=== PATIENT | female | born 1960 | race Caucasian/White ===

== ENCOUNTER 2018-01-31 07:48 | Emergency (ER) | payer OTHER ==
[2018-01-31 08:04] VITALS: TEMP 98.2
[2018-01-31] MEDS ORDERED: ONDANSETRON 4 MG/2 ML VIAL IVP STA (08:20)
[2018-01-31] MEDS ORDERED: SODIUM CHLORIDE 0.9% 1,000 ML IV STA (08:20)
[2018-01-31] MEDS ORDERED: MECLIZINE 12.5 MG TAB PO STA (08:21)
--- NOTE | 2018-01-31 08:58 | ED ---
Dizziness HPI - General Chief Complaint: Dizziness Stated Complaint: Dizziness Time Seen by Provider: 01/31/18 08:05 Source: patient, RN notes reviewed, old records reviewed Mode of arrival: ambulatory Limitations: no limitations - History of Present Illness Initial Comments: 57-year-old female presents emergency room today chief complaint of onset of dizziness. Worse for the past 2 weeks. She reports that she return to the right feels that the room is spinning. Patient states that she has been trying to do pressure points to manage this. Patient states that she has had a very stressful year. Patient states she's been taking care of her family and has not been able to really take care of herself. She went to her PCP. Weeks ago and was told that she was apparently fired from seeing her original PCP. Patient states that she has a history of thyroid disorder. This time she states that she did have some headaches, does have a history of multiple neck traumas in the past. She reports no recent trauma or new injuries to her head or neck. Patient states that she's had no fevers or chills. Denies any other symptoms. - Related Data Previous Rx's Medication Instructions Recorded Meclizine [Antivert] 12.5 mg PO Q8HR #20 tablet 01/31/18 Ondansetron Odt [Zofran Odt] 4 mg PO Q12HR PRN #20 tab 01/31/18 Allergies Allergy/AdvReac Type Severity Reaction Status Date / Time ibuprofen [From Motrin] Allergy Unknown Verified 01/31/18 08:04 Sulfa (Sulfonamide Allergy Unknown Verified 01/31/18 08:04 Antibiotics) Review of Systems ROS Statement: Those systems with pertinent positive or pertinent negative responses have been documented in the HPI. ROS Other: All systems not noted in ROS Statement are negative. Past Medical History Past Medical History: Thyroid Disorder History of Any Multi-Drug Resistant Organisms: None Reported Past Surgical History: Section Past Psychological History: No Psychological Hx Reported Smoking Status: Never smoker Past Alcohol Use History: Occasional Past Drug Use History: None Reported General Exam - General Exam Comments Initial Comments: 37-year-old female. Alert and oriented. No acute distress. Limitations: no limitations General appearance: alert, in no apparent distress Head exam: Present: atraumatic, normocephalic, normal inspection Eye exam: Present: normal appearance, PERRL, EOMI, nystagmus (Evidence of horizontal nystagmus on right sided gaze. Patient reports that she is very dizzy when she looks towards the right.). Absent: scleral icterus, conjunctival injection, periorbital swelling ENT exam: Present: normal exam, mucous membranes moist Neck exam: Present: normal inspection. Absent: tenderness, meningismus, lymphadenopathy Respiratory exam: Present: normal lung sounds bilaterally. Absent: respiratory distress, wheezes, rales, rhonchi, stridor Cardiovascular Exam: Present: regular rate, normal rhythm, normal heart sounds. Absent: systolic murmur, diastolic murmur, rubs, gallop, clicks GI/Abdominal exam: Present: soft, normal bowel sounds. Absent: distended, tenderness, guarding, rebound, rigid Back exam: Present: normal inspection Neurological exam: Present: alert Psychiatric exam: Present: normal affect, normal mood Skin exam: Present: warm, dry, intact, normal color. Absent: rash Course Vital Signs 01/31/18 08:01 Temperature 98.2 F Pulse Rate 80 Respiratory 20 Rate Blood Pressure 131/84 O2 Sat by Pulse 99 Oximetry Medical Decision Making - Medical Decision Making Patient's x-ray female presents by psych chief complaint of dizziness. Patient reports that she turns her head of the right she has room spinning sensation. She also has been having more stressful time with the past year. Patient's given IV fluids and obtained. Laboratory was reviewed and unremarkable. Chest x-ray was normal. Cervical x-rays she did complain of some minor neck pain was doing some degenerative changes C5-C6. Patient provisional. Patient did show evidence of a low TSH. Patient does state that she's been taking natural thyroid medication. She does have an appointment with the PCP next week. Discussed that she needs to follow up without to have her thyroid levels rechecked in a gesture medication. Patient agrees. Patient will be discharged at this time with meclizine, Apley's maneuver and Zofran. Discussed PCP follow- up P Patient history plan will comply. Return parameters were discussed. - Lab Data Result diagrams: 01/31/18 09:15 01/31/18 09:15 Lab Results 01/31/18 01/31/18 01/31/18 Range/Units 09:15 09:15 09:15 WBC 7.2 (3.8-10.6) k/uL RBC 5.00 (3.80-5.40) m/uL Hgb 14.3 (11.4-16.0) gm/dL Hct 43.4 (34.0-46.0) % MCV 86.7 (80.0-100.0) fL MCH 28.5 (25.0-35.0) pg MCHC 32.8 (31.0-37.0) g/dL RDW 12.3 (11.5-15.5) % Plt Count 271 (150-450) k/uL Neutrophils % 70 % Lymphocytes % 21 % Monocytes % 4 % Eosinophils % 4 % Basophils % 0 % Neutrophils # 5.0 (1.3-7.7) k/uL Lymphocytes # 1.5 (1.0-4.8) k/uL Monocytes # 0.3 (0-1.0) k/uL Eosinophils # 0.3 (0-0.7) k/uL Basophils # 0.0 (0-0.2) k/uL Sodium 141 (137-145) mmol/L Potassium 4.1 (3.5-5.1) mmol/L Chloride 106 (98-107) mmol/L Carbon Dioxide 27 (22-30) mmol/L Anion Gap 8 mmol/L BUN 13 (7-17) mg/dL Creatinine 0.59 (0.52-1.04) mg/dL Est GFR (CKD-EPI)AfAm >90 (>60 ml/min/1.73 sqM) Est GFR (CKD-EPI)NonAf >90 (>60 ml/min/1.73 sqM) Glucose 92 (74-99) mg/dL Calcium 9.6 (8.4-10.2) mg/dL Total Bilirubin 0.6 (0.2-1.3) mg/dL AST 21 (14-36) U/L ALT 24 (9-52) U/L Alkaline Phosphatase 51 (38-126) U/L Troponin I <0.012 (0.000-0.034) ng/mL Total Protein 7.3 (6.3-8.2) g/dL Albumin 4.6 (3.5-5.0) g/dL TSH 0.228 L (0.465-4.680) mIU/L Urine Color Urine Appearance (Clear) Urine pH (5.0-8.0) Ur Specific [place] (1.001-1.035) Urine Protein (Negative) Urine Glucose (UA) (Negative) Urine Ketones (Negative) Urine Blood (Negative) Urine Nitrite (Negative) Urine Bilirubin (Negative) Urine Urobilinogen (<2.0) mg/dL Ur Leukocyte Esterase (Negative) Urine WBC (0-5) /hpf Ur Squamous Epith Cells (0-4) /hpf Amorphous Sediment (None) /hpf Urine Mucus (None) /hpf 01/31/18 Range/Units 09:15 WBC (3.8-10.6) k/uL RBC (3.80-5.40) m/uL Hgb (11.4-16.0) gm/dL Hct (34.0-46.0) % MCV (80.0-100.0) fL MCH (25.0-35.0) pg MCHC (31.0-37.0) g/dL RDW (11.5-15.5) % Plt Count (150-450) k/uL Neutrophils % % Lymphocytes % % Monocytes % % Eosinophils % % Basophils % % Neutrophils # (1.3-7.7) k/uL Lymphocytes # (1.0-4.8) k/uL Monocytes # (0-1.0) k/uL Eosinophils # (0-0.7) k/uL Basophils # (0-0.2) k/uL Sodium (137-145) mmol/L Potassium (3.5-5.1) mmol/L Chloride (98-107) mmol/L Carbon Dioxide (22-30) mmol/L Anion Gap mmol/L BUN (7-17) mg/dL Creatinine (0.52-1.04) mg/dL Est GFR (CKD-EPI)AfAm (>60 ml/min/1.73 sqM) Est GFR (CKD-EPI)NonAf (>60 ml/min/1.73 sqM) Glucose (74-99) mg/dL Calcium (8.4-10.2) mg/dL Total Bilirubin (0.2-1.3) mg/dL AST (14-36) U/L ALT (9-52) U/L Alkaline Phosphatase (38-126) U/L Troponin I (0.000-0.034) ng/mL Total Protein (6.3-8.2) g/dL Albumin (3.5-5.0) g/dL TSH (0.465-4.680) mIU/L Urine Color Yellow Urine Appearance Cloudy H (Clear) Urine pH 7.5 (5.0-8.0) Ur Specific [place] 1.015 (1.001-1.035) Urine Protein Negative (Negative) Urine Glucose (UA) Negative (Negative) Urine Ketones Negative (Negative) Urine Blood Negative (Negative) Urine Nitrite Negative (Negative) Urine Bilirubin Negative (Negative) Urine Urobilinogen <2.0 (<2.0) mg/dL Ur Leukocyte Esterase Moderate H (Negative) Urine WBC 8 H (0-5) /hpf Ur Squamous Epith Cells <1 (0-4) /hpf Amorphous Sediment Occasional H (None) /hpf Urine Mucus Few H (None) /hpf 01/31/18 10:24 EKG shows normal sinus abnormal EKG. Ventricular rate 67 bpm period. Normal is 1:30 milliseconds. QRS ration 74 ms. QT QTc is 422/445 ms. No evidence of ST elevation or T-wave inversion. No evidence of atrial or ventricular arrhythmias. - Radiology Data Radiology results: report reviewed Tests cervical spine x-ray shows no acute osseous changes. Myalgias and changes. It mild disease at C5-C6. Normal chest x-ray. Heart is not enlarged. Disposition Clinical Impression: Vertigo, Hyperthyroidism Disposition: HOME SELF-CARE Condition: Good Instructions: Vertigo (ED) Additional Instructions: Patient has follow-up with primary care provider. Return to the emergency department if any alarming signs or symptoms occur. Prescriptions: Meclizine [Antivert] 12.5 mg PO Q8HR #20 tablet Ondansetron Odt [Zofran Odt] 4 mg PO Q12HR PRN #20 tab PRN Reason: Nausea Is patient prescribed a controlled substance at d/c from ED?: No Referrals: None,Stated [Primary Care Provider] - 1-2 days Rema Longoria MD [STAFF PHYSICIAN] - 1-2 days Time of Disposition: 10:37
[2018-01-31] MEDS ORDERED: ASPIRIN 325 MG TAB PO STA (09:26)
[2018-01-31] MEDS ORDERED: ACETAMINOPHEN TAB 500 MG TAB PO STA (09:28)
[2018-01-31 09:30] LABS: Basophils % (A) 0 %; Eosinophils # (A) 0.3 k/uL (0-0.7); Eosinophils % (A) 4 %; HCT 43.4 % (34.0-46.0); HGB 14.3 gm/dL (11.4-16.0); Lymphocytes # (A) 1.5 k/uL (1.0-4.8); Lymphocytes % (A) 21 %; MCH 28.5 pg (25.0-35.0); MCHC 32.8 g/dL (31.0-37.0); MCV 86.7 fL (80.0-100.0); Mean Platelet Volume 6.7; Monocytes # (A) 0.3 k/uL (0-1.0); Monocytes % (A) 4 %; Neutrophils % (A) 70 %; Platelet Count 271 k/uL (150-450); RDW 12.3 % (11.5-15.5); WBC 7.2 k/uL (3.8-10.6)
[2018-01-31 09:38] LABS: Amorphous Sediment,Urine Occasional /hpf; Appearance,Urine Cloudy (Clear); Bilirubin,Urine Negative (Negative); Blood,Urine Negative (Negative); Color,Urine Yellow; Glucose,Urine (UA) Negative (Negative); Ketones,Urine Negative (Negative); Leukocyte Esterase,Urine Moderate (Negative); Mucus,Urine Few /hpf; Nitrite,Urine Negative (Negative); PH, Urine 7.5 (5.0-8.0); Protein,Urine Negative (Negative); Specific Gravity,Urine 1.015 (1.001-1.035); Squamous Epithelial Cell,Urine <1 /hpf (0-4); Urobilinogen,Urine <2.0 mg/dL (<2.0); WBC,Urine 8 /hpf (0-5)
[2018-01-31 09:48] LABS: ALT 24 U/L (9-52); AST 21 U/L (14-36); Albumin 4.6 g/dL (3.5-5.0); Alkaline Phosphatase 51 U/L (38-126); Anion Gap 8 mmol/L; Blood Urea Nitrogen 13 mg/dL (7-17); Calcium 9.6 mg/dL (8.4-10.2); Carbon Dioxide 27 mmol/L (22-30); Chloride 106 mmol/L (98-107); Glucose 92 mg/dL (74-99); Potassium 4.1 mmol/L (3.5-5.1); Sodium 141 mmol/L (137-145); Total Bilirubin 0.6 mg/dL (0.2-1.3); Total Protein 7.3 g/dL (6.3-8.2)
--- NOTE | 2018-01-31 10:00 | XR ---
EXAMINATION TYPE: XR chest 2V DATE OF EXAM: 01/31/2018 HISTORY: Pain. REFERENCE: NONE. FINDINGS: The lungs are clear. Pleural space are clear. The heart is not enlarged. IMPRESSION: NORMAL CHEST.
--- NOTE | 2018-01-31 10:02 | XR ---
EXAMINATION TYPE: XR cervical spine limited , 3 VIEWS DATE OF EXAM ORDERED: 01/31/2018 HISTORY: Pain. COMPARISON: None. FINDINGS: Vertebral body height and alignment are maintained. Atlantoaxial relationships are normal. Prevertebral soft tissues are normal. There is mild uncovertebral joint disease at C5-6. There is al so mild disc space loss at this level. IMPRESSION: 1. NO ACUTE OSSEOUS LESION. 2. MILD DEGENERATIVE CHANGE.
[2018-01-31 10:46] LABS: T4, Free (Free Thyroxine) 0.86 ng/dL (0.78-2.19)
[2018-01-31 11:11] VITALS: BP 116/72; PULSE 72; RESP 16
== END 2018-01-31 11:10 | disposition home or self-care (01) ==
LOC: EC 07:48
DX: R42 Dizziness and giddiness (principal); R51 Headache; E05.90 Thyrotoxicosis, unspecified without thyrotoxic crisis or storm; M47.812 Spondylosis without myelopathy or radiculopathy, cervical region; Z88.6 Allergy status to analgesic agent; Z88.2 Allergy status to sulfonamides
CPT/HCPCS: 99284; 96374; 96361; 36415; 93005; 84439; 80053; 84443; 84484; 85025; 81001; 72040; 71046; J2405

== ENCOUNTER 2018-09-05 14:46 | Emergency (ER) | payer OTHER ==
[2018-09-05 14:55] VITALS: BP 151/80; PULSE 100; RESP 18; TEMP 97.9
[2018-09-05] MEDS ORDERED: ACETAMINOPHEN TAB 500 MG TAB PO STA (15:21)
[2018-09-05] MEDS ORDERED: CYCLOBENZAPRINE 10MG STARTER 3 TAB BTL PO STA (15:21)
--- NOTE | 2018-09-05 15:33 | ED ---
Dizziness HPI - General Chief Complaint: Dizziness Stated Complaint: Dizzy, scalp numbness Time Seen by Provider: 09/05/18 14:59 Source: patient, RN notes reviewed, old records reviewed Mode of arrival: ambulatory Limitations: no limitations - History of Present Illness Initial Comments: Patient is a 57-year-old female who presents emergency murmurs today with complaints of paresthesias over the posterior scalp and behind her left ear. Patient reports that she's been having the symptoms that she had her hair washed. She reports that she may have compressed a nerve within her neck. Patient states she was doing a lot of neck and yogurt exercises yesterday. Patient reports that today she felt like her "head and neck exploded". Patient states that she felt slightly dizzy at that time. She does complain of a mild tension headache. Patient states that she has no other neurological deficits or symptoms for which she denies any chest pain or shortness of breath. - Related Data Previous Rx's Medication Instructions Recorded Meclizine [Antivert] 12.5 mg PO Q8HR #20 tablet 01/31/18 Ondansetron Odt [Zofran Odt] 4 mg PO Q12HR PRN #20 tab 01/31/18 Cyclobenzaprine [Flexeril] 10 mg PO TID #12 tab 09/05/18 Allergies Allergy/AdvReac Type Severity Reaction Status Date / Time ibuprofen [From Motrin] Allergy Unknown Verified 09/05/18 14:50 Sulfa (Sulfonamide Allergy Unknown Verified 09/05/18 14:50 Antibiotics) Review of Systems ROS Statement: Those systems with pertinent positive or pertinent negative responses have been documented in the HPI. ROS Other: All systems not noted in ROS Statement are negative. Past Medical History Past Medical History: Thyroid Disorder Additional Past Medical History / Comment(s): vertigo History of Any Multi-Drug Resistant Organisms: None Reported Past Surgical History: Breast Surgery, Section Additional Past Surgical History / Comment(s): breast augmentation Past Psychological History: No Psychological Hx Reported Smoking Status: Never smoker Past Alcohol Use History: Occasional Past Drug Use History: None Reported General Exam - General Exam Comments Initial Comments: This is a well-appearing 57-year-old female. No distress. Limitations: no limitations General appearance: alert, in no apparent distress, other (Patient has tenderness over the left posterior scalp and behind the ear.) Head exam: Present: atraumatic, normocephalic, normal inspection Eye exam: Present: normal appearance, PERRL, EOMI. Absent: scleral icterus, conjunctival injection, periorbital swelling ENT exam: Present: normal exam, mucous membranes moist Neck exam: Present: normal inspection. Absent: tenderness, meningismus, lymphadenopathy Respiratory exam: Present: normal lung sounds bilaterally. Absent: respiratory distress, wheezes, rales, rhonchi, stridor Cardiovascular Exam: Present: regular rate, normal rhythm, normal heart sounds. Absent: systolic murmur, diastolic murmur, rubs, gallop, clicks GI/Abdominal exam: Present: soft, normal bowel sounds. Absent: distended, tenderness, guarding, rebound, rigid Extremities exam: Present: normal inspection, full ROM, normal capillary refill. Absent: tenderness, pedal edema, joint swelling, calf tenderness Back exam: Present: normal inspection Neurological exam: Present: alert, oriented X3, CN II-XII intact, normal gait, reflexes normal Expanded Patient oriented to: Present: person, place, time Speech: Present: fluid speech Cranial nerves: EOM's Intact: Normal Cerebellar function: Finger to Nose: Normal Upper motor neuron: Reza Neglect: Normal, Pronator Drift: Normal Sensory exam: Upper Extremity Light Touch: Normal, Lower Extremity Light Touch: Normal Motor strength exam: RUE: 5, LUE: 5, RLE: 5, LLE: 5 Eye Response: (4) open spontaneously Motor Response: (6) obeys commands Verbal Response: (5) oriented Bryant Total: 15 Psychiatric exam: Present: normal affect, normal mood Skin exam: Present: warm, dry, intact, normal color. Absent: rash Course Vital Signs 09/05/18 14:50 Temperature 97.9 F Pulse Rate 100 Respiratory 18 Rate Blood Pressure 151/80 O2 Sat by Pulse 98 Oximetry Medical Decision Making - Medical Decision Making Patient is a 37-year-old female who presents today with paresthesias over the posterior scalp. Symptoms started B conduction had her hair done. She did a lot of yogurt exercises yesterday. At this time Patient has some tenderness over the posterior scalp and spine. I discussed this likely a pinched nerve. She has no carotid bruits. She has no neurological deficits. She otherwise appears well. I discussed the Patient could follow up with her PCP and will prescribe Patient a short course of muscle relaxers and steroid for anti- inflammatory medications. Discussed that she could follow-up with her PCP as well as chiropractic services. All questions were answered return parameters were discussed. Disposition Clinical Impression: Pinched nerve in neck Disposition: HOME SELF-CARE Condition: Good Instructions (If sedation given, give patient instructions): Cervical Radiculopathy (ED) Additional Instructions: Patient should follow-up with your PCP and chiropractic services. Take muscle relaxers and Tylenol for pain. No sees a steroid for anti-inflammatory process. Return to the emergency department if any alarming signs or symptoms occur. Prescriptions: Cyclobenzaprine [Flexeril] 10 mg PO TID #12 tab Is patient prescribed a controlled substance at d/c from ED?: No Referrals: Rik Ramirez MD [Primary Care Provider] - 1-2 days Time of Disposition: 15:39
== END 2018-09-05 15:47 | disposition home or self-care (01) ==
LOC: EC 14:46
DX: G58.9 Mononeuropathy, unspecified (principal); Z88.2 Allergy status to sulfonamides; Z88.6 Allergy status to analgesic agent
CPT/HCPCS: 93005; 99284

== ENCOUNTER 2018-09-18 23:42 | Emergency (ER) | payer OTHER ==
[2018-09-18 23:50] VITALS: RESP 18
[2018-09-19] MEDS ORDERED: DIPH,PERTUS(ACELL)TETVAC-LF 0.5 ML VIAL IM ONE (00:18)
--- NOTE | 2018-09-19 00:27 | ED ---
Skin/Abscess/FB HPI - General Chief complaint: Skin/Abscess/Foreign Body Stated complaint: Redness lt foot Time Seen by Provider: 09/18/18 23:51 Source: patient Mode of arrival: ambulatory Limitations: no limitations - History of Present Illness Initial comments: This patient is a 58-year-old woman who presents with concern that she may be developing infection to the posterior aspect of her left foot. The patient states she had been walking on a beach in [place] and she stepped on something. She states that she then pulled a small black spine out of the skin overlying the left Achilles tendon. She states that the following day she had been wearing some new shoes that rubbed on that area and resulted in a blister forming. She states that over the next couple days she noted redness and warmth to the area. She is concerned there may be an early infection developing. She denies any systemic symptoms. She has not had fever or chills. No p alpitations, dyspnea, chest pain or any other symptoms. MD complaint: discoloration, other (Possible infection) -: days(s) Location: L foot Severity: mild Improves with: none Worsens with: none Associated symptoms: denies other symptoms Treatments Prior to Arrival: none - Related Data Previous Rx's Medication Instructions Recorded Meclizine [Antivert] 12.5 mg PO Q8HR #20 tablet 01/31/18 Ondansetron Odt [Zofran Odt] 4 mg PO Q12HR PRN #20 tab 01/31/18 Cyclobenzaprine [Flexeril] 10 mg PO TID #12 tab 09/05/18 Cephalexin [Keflex] 500 mg PO Q6HR #28 cap 09/19/18 Allergies Allergy/AdvReac Type Severity Reaction Status Date / Time ibuprofen [From Motrin] Allergy Unknown Verified 09/18/18 23:50 Sulfa (Sulfonamide Allergy Unknown Verified 09/18/18 23:50 Antibiotics) Review of Systems ROS Statement: Those systems with pertinent positive or pertinent negative responses have been documented in the HPI. ROS Other: All systems not noted in ROS Statement are negative. Constitutional: Denies: fever, chills Respiratory: Denies: cough, dyspnea Cardiovascular: Denies: chest pain, palpitations Skin: Reports: as per HPI, other (See above) Past Medical History Past Medical History: Thyroid Disorder Additional Past Medical History / Comment(s): vertigo History of Any Multi-Drug Resistant Organisms: None Reported Past Surgical History: Breast Surgery, Section Additional Past Surgical History / Comment(s): breast augmentation Past Psychological History: No Psychological Hx Reported Smoking Status: Never smoker Past Alcohol Use History: Occasional Past Drug Use History: None Reported General Exam Limitations: no limitations General appearance: alert, in no apparent distress Skin exam: Present: warm, dry, other (Patient has an approximately 0.5-1 cm x 1.5-2 cm bulla to the posterior aspect of the left foot over the Achilles tendon. There is also a little bit of surrounding erythema and warmth. No purulent drainage. No lymphangitis. No palpable nodes.) Course Vital Signs 09/18/18 23:46 Temperature 98.3 F Pulse Rate 95 Respiratory 18 Rate Blood Pressure 153/93 O2 Sat by Pulse 99 Oximetry Disposition Clinical Impression: Wound infection Disposition: HOME SELF-CARE Condition: Good Instructions (If sedation given, give patient instructions): Wound Infection (ED) Prescriptions: Cephalexin [Keflex] 500 mg PO Q6HR #28 cap Is patient prescribed a controlled substance at d/c from ED?: No Referrals: Rik Ramirez MD [Primary Care Provider] - 1-2 days
--- NOTE | 2018-09-19 00:51 | XR ---
EXAM: XR Left Foot Complete, 3 or More Views CLINICAL HISTORY: ITS.REASON XR Reason: R/O foreign body TECHNIQUE: Frontal, lateral and oblique views of the left foot. COMPARISON: No relevant prior studies available. FINDINGS: Bones/joints: Mild plantar calcaneal spur noted. No acute fracture. No dislocation. Soft tissues: No radiopaque foreign body. IMPRESSION: No radiopaque foreign body identified. Mild plantar calcaneal spur noted.
[2018-09-19] MEDS ORDERED: CEPHALEXIN 500MG STARTER PACK 4 CAP BTL PO STA (01:10)
[2018-09-19 01:21] VITALS: BP 134/99; PULSE 78; TEMP 98.2
== END 2018-09-19 01:20 | disposition home or self-care (01) ==
LOC: EC 23:42
DX: L08.9 Local infection of the skin and subcutaneous tissue, unspecified (principal); Z23 Encounter for immunization; Z88.2 Allergy status to sulfonamides; Z88.6 Allergy status to analgesic agent
CPT/HCPCS: 90471; 90715; 99283

== ENCOUNTER 2018-12-09 01:30 | Observation (INO) | payer OTHER ==
[2018-12-09] MEDS ORDERED: PIPERACILLIN-TAZOBACTAM 3.375 GM in SODIUM CHLORIDE 0.9% 100 ML IVPB STA (02:37)
[2018-12-09] MEDS ORDERED: VANCOMYCIN IV PER PHARMACY 1 EACH MISC MISCELLANE PRN (02:37)
[2018-12-09] MEDS ORDERED: VANCOMYCIN 1,000 MG in SODIUM CHLORIDE 0.9% 250 ML IVPB STA (02:39)
[2018-12-09] MEDS ORDERED: SODIUM CHLORIDE 0.9% 1,000 ML IV SCH (02:45)
[2018-12-09 03:28] LABS: Basophils # (A) 0.1 k/uL (0-0.2); Basophils % (A) 1 %; Eosinophils # (A) 0.5 k/uL (0-0.7); Eosinophils % (A) 5 %; HCT 41.2 % (34.0-46.0); HGB 13.7 gm/dL (11.4-16.0); Lymphocytes # (A) 2.1 k/uL (1.0-4.8); Lymphocytes % (A) 21 %; MCH 28.7 pg (25.0-35.0); MCHC 33.4 g/dL (31.0-37.0); MCV 86.1 fL (80.0-100.0); Monocytes # (A) 0.6 k/uL (0-1.0); Monocytes % (A) 6 %; Neutrophils # (A) 6.5 k/uL (1.3-7.7); Neutrophils % (A) 65 %; Platelet Count 285 k/uL (150-450); RBC 4.79 m/uL (3.80-5.40); RDW 13.6 % (11.5-15.5); WBC 9.9 k/uL (3.8-10.6)
[2018-12-09 03:40] LABS: ALT 16 U/L (9-52); AST 22 U/L (14-36); African American GFR (CKD) >90 (>60 ml/min/1.73 sqM); Albumin 4.6 g/dL (3.5-5.0); Alkaline Phosphatase 56 U/L (38-126); Anion Gap 9 mmol/L; Blood Urea Nitrogen 18 mg/dL (7-17); Calcium 9.5 mg/dL (8.4-10.2); Carbon Dioxide 25 mmol/L (22-30); Chloride 108 mmol/L (98-107); Glucose 97 mg/dL (74-99); Potassium 3.9 mmol/L (3.5-5.1); Sodium 142 mmol/L (137-145); Total Bilirubin 0.6 mg/dL (0.2-1.3); Total Protein 7.3 g/dL (6.3-8.2)
--- NOTE | 2018-12-09 04:35 | ED ---
ENT HPI - General Chief complaint: ENT Stated complaint: Cyst Lft Nostril Time Seen by Provider: 12/09/18 02:20 Source: patient Mode of arrival: ambulatory Limitations: no limitations - History of Present Illness Initial comments: 58-year-old female patient presents to the emergency department today for evaluation of pain, swelling to the left nostril. Patient states that she noticed some swelling earlier in the day. Patient states that she took a couple of keflex capsules that she had at home. States that she tried to go to bed however the pain worsened so she got up to inspect the nose. She states that the swelling was significantly worse. Patient denies any fever or chills with this. The states that she can feel drainage down the back of her throat which is causing a burning sensation. She denies taking any medication for her symptoms other than the keflex. Patient denies any recent rash, shortness breath, chest pain, abdominal pain, nausea, vomiting, diarrhea, constipation, back pain, numbness, tingling, dizziness, weakness, hematuria, dysuria, urinary urgency, urinary frequency, headache, visual changes, or any other complaints. - Related Data Previous Rx's Medication Instructions Recorded Meclizine [Antivert] 12.5 mg PO Q8HR #20 tablet 01/31/18 Ondansetron Odt [Zofran Odt] 4 mg PO Q12HR PRN #20 tab 01/31/18 Cyclobenzaprine [Flexeril] 10 mg PO TID #12 tab 09/05/18 Cephalexin [Keflex] 500 mg PO Q6HR #28 cap 09/19/18 Allergies Allergy/AdvReac Type Severity Reaction Status Date / Time ibuprofen [From Motrin] Allergy Unknown Verified 12/09/18 01:43 Sulfa (Sulfonamide Allergy Unknown Verified 12/09/18 01:43 Antibiotics) Review of Systems ROS Statement: Those systems with pertinent positive or pertinent negative responses have been documented in the HPI. ROS Other: All systems not noted in ROS Statement are negative. Past Medical History Past Medical History: Thyroid Disorder Additional Past Medical History / Comment(s): vertigo History of Any Multi-Drug Resistant Organisms: None Reported Past Surgical History: Breast Surgery, Section Additional Past Surgical History / Comment(s): breast augmentation Past Psychological History: No Psychological Hx Reported Smoking Status: Never smoker Past Alcohol Use History: Occasional Past Drug Use History: None Reported General Exam Limitations: no limitations General appearance: alert, in no apparent distress, other (Physical well- developed, well-nourished adult female patient in no acute distress. Vital signs upon presentation are temperature 98.4F, pulse 85, respirations 20, blood pressure 136/81, pulse ox 99% on room air.) Eye exam: Present: normal appearance, PERRL, EOMI. Absent: scleral icterus, conjunctival injection, periorbital swelling ENT exam: Present: mucous membranes moist, other (Abscess noted to the left nare, swelling extending down to the left upper lip, no evidence of drainage at this time). Absent: normal exam Respiratory exam: Present: normal lung sounds bilaterally. Absent: respiratory distress, wheezes, rales, rhonchi, stridor Cardiovascular Exam: Present: regular rate, normal rhythm, normal heart sounds. Absent: systolic murmur, diastolic murmur, rubs, gallop, clicks Neurological exam: Present: alert, oriented X3, CN II-XII intact Psychiatric exam: Present: normal affect, normal mood Skin exam: Present: warm, dry, intact, normal color. Absent: rash Course Vital Signs 12/09/18 01:39 Temperature 98.4 F Pulse Rate 85 Respiratory 20 Rate Blood Pressure 136/81 O2 Sat by Pulse 99 Oximetry Medical Decision Making - Medical Decision Making 58 year-old female patient presented to the emergency department today for evaluation of abscess to the left nare. Physical examination did reveal significant swelling and tenderness over the left upper lip and nare. Labs reviewed and are unremarkable. Given area of abscess we will admit to the hospital for further evaluation and consultation by ENT. Dr. Ramirez is accepting - Lab Data Result diagrams: 12/09/18 03:15 12/09/18 03:15 Lab Results 12/09/18 12/09/18 Range/Units 03:15 03:15 WBC 9.9 (3.8-10.6) k/uL RBC 4.79 (3.80-5.40) m/uL Hgb 13.7 (11.4-16.0) gm/dL Hct 41.2 (34.0-46.0) % MCV 86.1 (80.0-100.0) fL MCH 28.7 (25.0-35.0) pg MCHC 33.4 (31.0-37.0) g/dL RDW 13.6 (11.5-15.5) % Plt Count 285 (150-450) k/uL Neutrophils % 65 % Lymphocytes % 21 % Monocytes % 6 % Eosinophils % 5 % Basophils % 1 % Neutrophils # 6.5 (1.3-7.7) k/uL Lymphocytes # 2.1 (1.0-4.8) k/uL Monocytes # 0.6 (0-1.0) k/uL Eosinophils # 0.5 (0-0.7) k/uL Basophils # 0.1 (0-0.2) k/uL Sodium 142 (137-145) mmol/L Potassium 3.9 (3.5-5.1) mmol/L Chloride 108 H (98-107) mmol/L Carbon Dioxide 25 (22-30) mmol/L Anion Gap 9 mmol/L BUN 18 H (7-17) mg/dL Creatinine 0.66 (0.52-1.04) mg/dL Est GFR (CKD-EPI)AfAm >90 (>60 ml/min/1.73 sqM) Est GFR (CKD-EPI)NonAf >90 (>60 ml/min/1.73 sqM) Glucose 97 (74-99) mg/dL Calcium 9.5 (8.4-10.2) mg/dL Total Bilirubin 0.6 (0.2-1.3) mg/dL AST 22 (14-36) U/L ALT 16 (9-52) U/L Alkaline Phosphatase 56 (38-126) U/L Total Protein 7.3 (6.3-8.2) g/dL Albumin 4.6 (3.5-5.0) g/dL Disposition Clinical Impression: Nasal abscess Disposition: ADMITTED IP TO THIS [facility] Condition: Serious Referrals: Rik Ramirez MD [Primary Care Provider] - 1-2 days Decision to Admit Reason: Admit from EC Decision Date: 12/09/18 Decision Time: 04:40
[2018-12-09] MEDS ORDERED: NALOXONE 0.4 MG/ML 1 ML VIAL IV PRN (04:40)
[2018-12-09] MEDS ORDERED: HYDROcodone/APAP 5-325MG 1 EACH TAB PO PRN (04:40)
[2018-12-09 05:54] VITALS: RESP 16
[2018-12-09 06:25] VITALS: BMI 18.5
[2018-12-09 07:47] VITALS: BP 108/68; PULSE 75; TEMP 97.9
[2018-12-09] MEDS ORDERED: PIPERACILLIN-TAZOBACTAM 3.375 GM in SODIUM CHLORIDE 0.9% 100 ML IVPB SCH (12:00)
[2018-12-09] MEDS ORDERED: CEPHALEXIN 500 MG CAP PO SCH ×2 (13:00→18:00)
[2018-12-09] MEDS ORDERED: VANCOMYCIN 1,000 MG in SODIUM CHLORIDE 0.9% 250 ML IVPB SCH (17:00)
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
--- NOTE | 2018-12-10 08:24 | DS ---
DISCHARGE SUMMARY CHIEF COMPLAINT: Cellulitis or abscess in the left nostril. HISTORY OF PRESENT ILLNESS AND PHYSICAL EXAM: Details of this lady's history and physical can be found in the initial workup. LABORATORY STUDIES: While she was in a hospital she had laboratory studies, details of which can be found in the laboratory section of her chart. COURSE IN HOSPITAL: After admission she was placed on bedrest, started on intravenous fluids and IV antibiotics. The area of induration, swelling and pain around the left nostril receded quite quickly. She was referred to ENT, but they could not get in to see her until the evening and the swelling, pain, redness and induration were largely gone. It was felt that she could go home. She will go home on Keflex 500 mg 4 times a day and be seen in the office in several days. FINAL DIAGNOSES: 1. Cellulitis or abscess in the left nostril. 2. Hypothyroidism. OPERATIONS: None. CONSULTATIONS: None. She is improved. MMODL / AVAN: [id number] /
== END 2018-12-09 17:39 | disposition home or self-care (01) ==
LOC: EC 01:30 → 4SSUR 04:19
PROVIDERS: ADMIT Family Medicine; ATTEND Family Medicine
DX: J34.0 Abscess, furuncle and carbuncle of nose (principal); E03.9 Hypothyroidism, unspecified; Z88.6 Allergy status to analgesic agent; Z88.2 Allergy status to sulfonamides; Z79.890 Hormone replacement therapy
CPT/HCPCS: 96361; 96366 ×2; 96367; 96365; 99285; 36415; 80053; 85025; 87040; G0378; J2543; J3370

== ENCOUNTER 2018-12-25 11:40 | Emergency (ER) | payer OTHER ==
[2018-12-25 11:46] VITALS: BP 163/91; PULSE 94; RESP 20; TEMP 97.7
[2018-12-25] MEDS ORDERED: MUPIROCIN 2% OINT 22 GM TUBE TOPICAL SCH (12:00)
[2018-12-25] MEDS ORDERED: CLINDAMYCIN 150 MG CAP PO STA (12:02)
[2018-12-25] MEDS ORDERED: MUPIROCIN 2% OINT 22 GM TUBE NASAL STA (12:07)
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
== END 2018-12-25 12:50 | disposition home or self-care (01) ==
LOC: EC 11:40
DX: Z22.322 Carrier or suspected carrier of Methicillin resistant Staphylococcus aureus (principal); E07.9 Disorder of thyroid, unspecified; Z79.899 Other long term (current) drug therapy; Z88.6 Allergy status to analgesic agent; Z88.2 Allergy status to sulfonamides
CPT/HCPCS: 99283

== ENCOUNTER 2019-08-14 07:36 | Emergency (ER) | payer OTHER ==
[2019-08-14 07:45] VITALS: BP 124/86; PULSE 75; RESP 16; TEMP 98
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
[2019-08-14 08:32] LABS: Appearance,Urine Cloudy (Clear); Bilirubin,Urine Negative (Negative); Blood,Urine Negative (Negative); Color,Urine Yellow; Glucose,Urine (UA) Negative (Negative); Ketones,Urine Negative (Negative); Leukocyte Esterase,Urine Moderate (Negative); Mucus,Urine Occasional /hpf; Nitrite,Urine Negative (Negative); PH, Urine 5.5 (5.0-8.0); Protein,Urine Trace (Negative); RBC,Urine 3 /hpf (0-5); Specific Gravity,Urine 1.023 (1.001-1.035); Squamous Epithelial Cell,Urine 5 /hpf (0-4); Urobilinogen,Urine <2.0 mg/dL (<2.0); WBC,Urine 52 /hpf (0-5)
[2019-08-14] MEDS ORDERED: cefTRIAXone 1,000 MG VIAL (IM USE) IM STA (08:52)
[2019-08-14] MEDS ORDERED: LIDOCAINE 1% INJ 10MG/ML (20 ML MDV) SQ ONE (08:56)
--- NOTE | 2019-08-17 02:58 | CDI ---
Dear Devendra Handley PA-C: Please do addendum procedure related to Lidocaine HCL as given in Medication List. Thank You, Jaison Bean, [employer]. If you have any questions, please contact [employer] Operator at [phone]. [facility]
== END 2019-08-14 09:01 | disposition home or self-care (01) ==
LOC: EC 07:36
DX: N39.0 Urinary tract infection, site not specified (principal); E07.9 Disorder of thyroid, unspecified; Z88.2 Allergy status to sulfonamides; Z88.6 Allergy status to analgesic agent; Z79.890 Hormone replacement therapy; Z86.14 Personal history of Methicillin resistant Staphylococcus aureus infection
CPT/HCPCS: 99284; 64450; 96372; 81001; 87086; J2001; J0696

== ENCOUNTER 2019-08-14 21:10 | Emergency (ER) | payer OTHER ==
[2019-08-14 21:20] VITALS: BP 124/81; PULSE 84; RESP 18; TEMP 97.6
[2019-08-14] MEDS ORDERED: diphenhydrAMINE 50 MG CAP PO STA (21:41)
[2019-08-14] MEDS ORDERED: predniSONE 50 MG TAB PO STA (21:41)
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
== END 2019-08-14 22:01 | disposition home or self-care (01) ==
LOC: EC 21:10
DX: R06.02 Shortness of breath (principal); R07.89 Other chest pain; T36.1X5A Adverse effect of cephalosporins and other beta-lactam antibiotics, initial encounter; N39.0 Urinary tract infection, site not specified; E07.9 Disorder of thyroid, unspecified; Z88.1 Allergy status to other antibiotic agents; Z88.2 Allergy status to sulfonamides; Z88.6 Allergy status to analgesic agent; Z88.7 Allergy status to serum and vaccine; Z79.890 Hormone replacement therapy; Z86.14 Personal history of Methicillin resistant Staphylococcus aureus infection
CPT/HCPCS: 99284 ×3; 96372; 64450; 81001; 87086; J2001; J0696; J7512